=== PATIENT | male | born 1950 | race American Indian/Alaskan Native ===

== ENCOUNTER 2022-02-08 06:49 | Day surgery (SDC) | payer MEDICARE ==
[2022-02-08] MEDS ORDERED: SODIUM CHLORIDE 0.9% 1000 ML 1,000 ML IV SCH (07:00)
--- NOTE | 2022-02-08 08:19 | Anesthesia Day of Surgery ---
Anesthesia Day of Surgery - Day of Surgery Patient Examined: Yes Patient H&P Reviewed: Yes Patient is NPO: Yes
[2022-02-08] MEDS ORDERED: propofoL 200 MG/20 ML VIAL IV ONE (08:21)
--- NOTE | 2022-02-08 08:21 | Anesthesia Consultation ---
Anesthesia Consult and Med Hx Date of service: 02/08/22 - Airway Anesthetic Teeth Evaluation: Dentures, Edentulous ROM Head & Neck: Adequate Mental/Hyoid Distance: Adequate Mallampati Class: Class II Intubation Access Assessment: Good - Pre-Operative Health Status ASA Pre-Surgery Classification: ASA2 Proposed Anesthetic Plan: MAC - Pulmonary Hx Smoking: No (Former) Hx Sleep Apnea: No - Cardiovascular System Hx Hypertension: Yes - Gastrointestinal Hx Gastroesophageal Reflux Disease: Yes - Hematic Hx Sickle Cell Disease: No - Other Systems Hx Obesity: No
--- NOTE | 2022-02-08 09:10 | Short Stay Summary ---
Short Stay Documentation Date of service: 02/08/22 - History H&P: obtained from office - Allergies and Medications Current Medications: Allergies No Known Allergies Allergy (Unverified 02/05/22 10:56) Active Medications Sodium Chloride (Nacl 0.9% 1000 Ml) 1,000 mls @ 50 mls/hr IV DIRECT ELDA Last Admin: 02/08/22 08:35 Dose: 0 mls - Brief post op/procedure progress note Date of procedure: 02/08/22 Procedure: see dictation Estimated blood loss: minimal Pathology: list (Biopsies of antrum for h pylori) Specimen disposition: to lab Condition: stable - Disposition Condition at discharge: Good Disposition: 01 HOME / SELF CARE / HOMELESS - Discharge Diagnoses (1) Pyloric stenosis, acquired Status: Acute Short Stay Discharge Plan Activity: other (no driving for 24 hours.) Weight Bearing Status: Full Weight Bearing Diet: other (Low residue diet) Follow up with: VIVI POLK MD [Primary Care Provider] - 7 Days
--- NOTE | 2022-02-08 09:15 | Operative Report ---
Operative Report Operative Report: Date of procedure: 02/08/2022 Procedure: Esophagogastroduodenoscopy with pyloric channel dilation by balloon, 8 to 10 mm. Biopsies of the antrum for H. pylori. Preprocedure diagnosis: Pyloric stenosis with symptoms. Post procedure diagnosis: Pyloric stenosis. Endoscopist: Dr. Solares Anesthesia: Monitored anesthesia care per anesthesia department Medications: Propofol per anesthesia Estimated blood loss: Minimum. After careful discussion of the nature and purpose of the procedure as well as details the technique risks benefits and alternatives consent was obtained. The patient was placed in the left lateral decubitus position and medicated per anesthesia. The tip of the [employer] EQ 570 video scope was passed per orum under direct vision into the esophagus and advanced into the stomach and descending duodenum. The pyloric channel was stenotic and tortuous. There was no ulceration or mass-effect. The scope was advanced into the third portion of the duodenum. The third portion of the duodenum, second portion and bulb were normal. Dilation was then performed. An 8 to 10 mm [id number] pyloric channel short balloon was advanced under direct vision into the second portion of the duodenum. The balloon was then positioned over the pyloric channel and gradual dilation from 8 to 10 mm performed over 2 minutes. The area was reinspected and there was minimal trauma noted. The scope was withdrawn into the stomach and the stomach then gently insufflated with air. The antrum was normal. Biopsies were taken in the antrum for H. pylori. The stomach was further insufflated and the scope was then retroflexed and partially withdrawn. The cardia, fundus, and body of the stomach were within normal limits and easily distensible.The scope was then withdrawn in the forward position. The esophagogastric junction was at 40 cm. The esophageal body was normal throughout. The procedure was was well tolerated and the patient was observed in recovery. Impressions: Pyloric stenosis with a benign appearance. Status post dilation to 10 mm by pyloric channel balloon. Biopsies now pending for H. pylori. Plan: Consider redilation in the future depending upon symptoms. Surgery may be considered for refractory symptoms in this situation. Continue PPI therapy indefinitely. Electronically signed: Pravin Solares MD
[2022-02-08 10:15] VITALS: BP 118/61
--- NOTE | 2022-02-08 16:28 | Post Anesthesia Evaluation ---
- Post Anesthesia Evaluation Patient Participated: Yes Airway Patent: Yes Stable Respiratory Function: Yes Nausea/Vomiting: No Temp > 96.8F: Yes Pain Manageable: Yes Adequeate Hydration: Yes Anesthesia Complications: No Block Receding Appropriately: Not Applicable Patient on Ventilator: No
== END 2022-02-08 09:50 | disposition home or self-care (01) ==
LOC: GIO 06:49
PROVIDERS: ATTEND Internal Medicine Gastroenterology
DX: K31.1 Adult hypertrophic pyloric stenosis (principal); K31.89 Other diseases of stomach and duodenum; K31.A0 Gastric intestinal metaplasia, unspecified; E78.00 Pure hypercholesterolemia, unspecified; I10 Essential (primary) hypertension; K21.9 Gastro-esophageal reflux disease without esophagitis; Z79.899 Other long term (current) drug therapy; Z87.891 Personal history of nicotine dependence
CPT/HCPCS: 43239; 43249; 88305; 88342; C1726; J2704; J7030; J7120; Q0162